=== PATIENT | male | born 1990 | race African-American/Black ===

== ENCOUNTER 2019-06-24 19:02 | Emergency (ER) | payer OTHER ==
--- NOTE | 2019-06-24 19:32 | RAD ---
Chest one view HISTORY: Chest pain. FINDINGS: No comparison. Cardiac silhouette and pulmonary vasculature are unremarkable. Mediastinum i s midline. No lobar consolidation or evidence of pneumothorax. Very subtle horizontal opacity at the right lateral costophrenic angle has the appearance of a air-fl uid level. monitoring specialist leads overlie the chest. IMPRESSION : Probable tiny right pleural effusion. Cause is not evident.
--- NOTE | 2019-06-29 10:00 | EKG ---
Test Reason : Blood Pressure : / mmHG Vent. Rate : 074 BPM Atrial Rate : 074 BPM P-R Int : 136 ms QRS Dur : 098 ms QT Int : 378 ms P-R-T Axes : 077 058 043 degrees QTc Int : 419 ms Normal sinus rhythm Normal ECG Confirmed by CHRISTINE MCBRIDE ([id number]), news copy editor IRLANDA POND ([id number]) on 06/29/2019 9:59:48 AM Referred By: Confirmed By:CHRISTINE MCBRIDE
== END 2019-06-24 21:06 | disposition home or self-care (01) ==
LOC: ERS 19:02
DX: J90 Pleural effusion, not elsewhere classified (principal)
CPT/HCPCS: 71045; 93005